=== PATIENT | female | born 1955 | race Caucasian/White ===

== ENCOUNTER 2017-11-10 19:54 | Emergency (ER) | payer BC ==
[2017-11-10 20:08] VITALS: BP 177/103
[2017-11-10] MEDS ORDERED: Amoxicillin/Clavulanate TAB* 875 MG PO ONE (20:29)
--- NOTE | 2017-11-10 20:56 | UC ---
Darek Herrmann Nikita, scribed for Vel Sabillon MD on 11/10/17 at 2016 . Throat Pain/Nasal Jarrett HPI - HPI Summary HPI Summary: This patient is a 62 year old F presenting to [facility] with a chief complaint of sore throat since 1 day ago. The patient rates the pain 4/10 in severity. Symptoms aggravated by nothing. Symptoms alleviated by nothing. Patient reports chills and fever. She also reports that she had exposure to strep and pharyngitis from son and daughter. Patient denies ear pain and difficulty swallowing. - History of Current Complaint Chief Complaint: UCRespiratory Stated Complaint: SORE THROAT, AND CHILLS Time Seen by Provider: 11/10/17 20:04 Hx Obtained From: Patient Onset/Duration: Sudden Onset, Lasting Days, Still Present Severity: Moderate Pain Intensity: 4 Pain Scale Used: 0-10 Numeric Associated Signs & Symptoms: Positive: Other - Patient reports sore throat, chills, and fever. She also reports that she had exposure to strep and pharyngitis from son and daughter. Patient denies ear pain and difficulty swallowing. - Allergies/Home Medications Allergies/Adverse Reactions: Allergies Allergy/AdvReac Type Severity Reaction Status Date / Time JUAN DANIEL Inhibitors Allergy Coughing Verified 11/10/17 20:09 tetanus toxoid, adsorbed Allergy Swelling Verified 11/10/17 20:09 Tetanus Vaccines and Toxoid Allergy Swelling Verified 11/10/17 20:09 thimerosal Allergy Swelling Verified 11/10/17 20:09 Home Medications: Home Medications Cholecalciferol TAB* [Vitamin D TAB*] 2,000 unit PO DAILY 11/10/17 [History Confirmed 11/10/17] Levothyroxine TAB* [Synthroid 100 MCG TAB*] 1 tab PO DAILY 11/10/17 [History Confirmed 11/10/17] Losartan TAB* [Cozaar TAB*] 100 mg PO DAILY 11/10/17 [History Confirmed 11/10/17 ] Solifenacin Succinate [Vesicare] 10 mg PO DAILY 11/10/17 [History Confirmed ] PMH/Surg Hx/FS Hx/Imm Hx Endocrine History: Diabetes, Hypothyroidism Cardiovascular History: Hypertension - Surgical History Surgical History: Yes Surgery Procedure, Year, and Place: Tonsils, knee surgery - Family History Known Family History: Positive: Hypertension, Diabetes - Social History Alcohol Use: None Substance Use Type: None Smoking Status (MU): Never Smoked Tobacco Review of Systems Constitutional: Fever, Chills ENT: Sore Throat, Other - denies ear pain and difficulty swallowing All Other Systems Reviewed And Are Negative: Yes Physical Exam - Summary Physical Exam Summary: VITAL SIGNS: Reviewed. GENERAL: ~Patient is a well-developed and nourished FEMALE who is lying comfortable in the stretcher. ~Patient is not in any acute respiratory distress. HEAD AND FACE: Normocephalic EYES: PERRLA, EOMI x 2. EARS: Hearing grossly intact. MOUTH: Positive pharyngeal erythema, no exudate. NECK: Supple, trachea is midline, no adenopathy, no JVD, no carotid bruit. CHEST: Symmetric, no tenderness at palpation LUNGS: Clear to auscultation bilaterally. No wheezing or crackles. CVS: Regular rate and rhythm, S1 and S2 present, no murmurs or gallops appreciated. ABDOMEN: Soft, non-tender. Bowel sounds are normal. No abdominal abnormal pulsations. EXTREMITIES: Full ROM in all major joints, no edema, no cyanosis or clubbing. NEURO: Alert and oriented x 3. No acute neurological deficits. Speech is normal and follows commands. SKIN: Dry and warm Triage Information Reviewed: Yes Vital Signs: Initial Vital Signs Temp 100.4 F 11/10/17 20:05 Pulse 122 11/10/17 20:05 Resp 18 11/10/17 20:05 BP 177/103 11/10/17 20:05 Pulse Ox 98 11/10/17 20:05 Vital Signs Reviewed: Yes Re-Evaluation - Re-Evaluation First Eval Re-Evaluation Time: 20:31 Comment: Discussed results and discharge plan. Throat Pain/Nasal Course/Dx - Course Assessment/Plan: This patient is a 62 year old F presenting to [facility] with a chief complaint of sore throat since 1 day ago. Positive for strep. The pt is hemodynamically stable, alert and oriented x3. The patient was found to have increased BP in UC. The patient will follow up with PCP for better control of BP. I discussed all the findings and test results with the patient. Patient was instructed to return to the urgent care or go to ER immediately if any of the symptoms return or worsens. Plan of care was discussed with the patient, and patient understands and agrees. All questions were answered to patient satisfaction. There were no further complaints or concerns. - Differential Dx/Diagnosis Provider Diagnoses: strep throat Discharge - Sign-Out/Discharge Documenting (check all that apply): Discharge - Discharge Plan Condition: Stable Disposition: HOME Prescriptions: Amoxicillin/Clavulanate TAB* [Augmentin TAB 875*] 875 mg PO BID #20 tab Patient Education Materials: Strep Throat (DC) Referrals: No Primary Care Phys,NOPCP [Primary Care Provider] - Additional Instructions: FOLLOW UP WITH YOUR PRIMARY CARE PROVIDER WITHIN ONE WEEK FOR HIGH BLOOD PRESSURE NOTED TODAY. RETURN TO URGENT CARE FOR ANY WORSENING OR NEW SYMPTOMS. The documentation as recorded by the Darek gallagher Nikita accurately reflects the service I personally performed and the decisions made by , Vel Sabillon MD.
== END 2017-11-10 20:40 | disposition home or self-care (01) ==
LOC: UCEAST 19:54
DX: J02.0 Streptococcal pharyngitis (principal); E11.9 Type 2 diabetes mellitus without complications; E03.9 Hypothyroidism, unspecified; I10 Essential (primary) hypertension; Z88.7 Allergy status to serum and vaccine
CPT/HCPCS: 87651; 99202; A9270-GY; G0463

== ENCOUNTER 2017-12-31 11:45 | Emergency (ER) | payer BC ==
[2017-12-31 12:13] VITALS: BP 144/90
--- NOTE | 2017-12-31 12:20 | UC ---
Throat Pain/Nasal Jarrett HPI - HPI Summary HPI Summary: patient has had a sore throat for one day--no other sx. patient is concerned about strep as she is [place] - History of Current Complaint Hx Obtained From: Patient Hx Last Menstrual Period: post ?: No Onset/Duration: Gradual Onset Pain Intensity: 5 Pain Scale Used: 0-10 Numeric Cough: None Associated Signs & Symptoms: Positive: Negative <Nicolasa Crespo - Last Filed: 12/31/17 12:45> <Carla Zacarias - Last Filed: 12/31/17 13:21> - History of Current Complaint Chief Complaint: UCRespiratory Stated Complaint: THROAT PAIN Time Seen by Provider: 12/31/17 12:20 - Allergies/Home Medications Allergies/Adverse Reactions: Allergies Allergy/AdvReac Type Severity Reaction Status Date / Time JUAN DANIEL Inhibitors Allergy Coughing Verified 12/31/17 12:15 tetanus toxoid, adsorbed Allergy Swelling Verified 12/31/17 12:15 Tetanus Vaccines and Toxoid Allergy Swelling Verified 12/31/17 12:15 thimerosal Allergy Swelling Verified 12/31/17 12:15 PMH/Surg Hx/FS Hx/Imm Hx Previously Healthy: No Endocrine History: Hypothyroidism Cardiovascular History: Hypertension - Surgical History Surgical History: Yes Surgery Procedure, Year, and Place: Tonsiliectomy, knee surgery - Family History Known Family History: Positive: Hypertension, Diabetes - Social History Occupation: Employed Full-time Lives: With Family Alcohol Use: None Substance Use Type: None Smoking Status (MU): Never Smoked Tobacco <Nicolasa Crespo - Last Filed: 12/31/17 12:45> Review of Systems Constitutional: Negative Skin: Negative Eyes: Negative ENT: Sore Throat Respiratory: Negative Cardiovascular: Negative Gastrointestinal: Negative Genitourinary: Negative Motor: Negative Neurovascular: Negative Musculoskeletal: Negative Neurological: Negative Psychological: Negative Is Patient Immunocompromised?: No All Other Systems Reviewed And Are Negative: Yes <Nicolasa Crespo - Last Filed: 12/31/17 12:45> Physical Exam Triage Information Reviewed: Yes Appearance: Well-Appearing, No Pain Distress, Well-Nourished Vital Signs: Initial Vital Signs Temp 98.9 F 12/31/17 12:09 Pulse 86 12/31/17 12:09 Resp 16 12/31/17 12:09 BP 144/90 12/31/17 12:09 Pulse Ox 97 12/31/17 12:09 Vital Signs Reviewed: Yes Eye Exam: Normal Eyes: Positive: Conjunctiva Clear ENT Exam: Normal ENT: Positive: Normal ENT inspection, Hearing grossly normal, Pharynx normal, Uvula midline. Negative: Tonsillar swelling, Tonsillar exudate, Trismus, Muffled voice, Hoarse voice, Dental tenderness Dental Exam: Normal Neck exam: Normal Neck: Positive: Supple, Nontender Respiratory Exam: Normal Respiratory: Positive: Chest non-tender, No respiratory distress, No accessory muscle use Cardiovascular Exam: Normal Cardiovascular: Positive: RRR, Pulses Normal, Brisk Capillary Refill Musculoskeletal Exam: Normal Musculoskeletal: Positive: Strength Intact, ROM Intact Neurological Exam: Normal Neurological: Positive: Alert, Muscle Tone Normal Psychological Exam: Normal Skin Exam: Normal <Nicolasa Crespo - Last Filed: 12/31/17 12:45> Vital Signs: Initial Vital Signs Temp 98.9 F 12/31/17 12:09 Pulse 86 12/31/17 12:09 Resp 16 12/31/17 12:09 BP 144/90 12/31/17 12:09 Pulse Ox 97 12/31/17 12:09 <Carla Zacarias - Last Filed: 12/31/17 13:21> Throat Pain/Nasal Course/Dx - Course Assessment/Plan: increase fluids, tylenol, ibuprofen, otc remidies for sx relief follow with pcp prn - Differential Dx/Diagnosis Provider Diagnoses: Pharyngitis <Nicolasa Crespo - Last Filed: 12/31/17 12:45> Discharge - Sign-Out/Discharge Documenting (check all that apply): Discharge/Admit/Transfer - Billing Disposition and Condition Condition: STABLE Disposition: Home <Nicolasa Crespo - Last Filed: 12/31/17 12:45> - Billing Disposition and Condition Condition: STABLE Disposition: Home <Carla Zacarias - Last Filed: 12/31/17 13:21> - Discharge Plan Condition: Stable Disposition: HOME Patient Education Materials: Pharyngitis (ED) Referrals: [facility] [Outside] - If Needed Attestation Statement User Type: Provider - I was available for consult. This patient was seen by the LEONIE. The patient was not presented to, seen by, or examined by me. -Braxton <Carla Zacarias - Last Filed: 12/31/17 13:21>
== END 2017-12-31 12:50 | disposition home or self-care (01) ==
LOC: UCEAST 11:45
DX: J02.9 Acute pharyngitis, unspecified (principal); I10 Essential (primary) hypertension; E03.9 Hypothyroidism, unspecified; Z88.8 Allergy status to other drugs, medicaments and biological substances; Z88.7 Allergy status to serum and vaccine; Z90.89 Acquired absence of other organs
CPT/HCPCS: 87651; 99212; G0463